=== PATIENT | female | born 1950 | race Caucasian/White ===

== ENCOUNTER 2017-02-09 10:56 | Outpatient (CLI) | payer MEDICARE, MEDICAID | END 2017-02-09 10:57 | disposition home or self-care (01) | LOC: LAB.N 10:56 | PROVIDERS: ATTEND Nurse Practitioner Family | DX: M10.9 Gout, unspecified (principal) | CPT/HCPCS: 36415; 84550 ==

== ENCOUNTER 2017-07-04 08:00 | Outpatient (CLI) | payer MEDICARE, MEDICAID ==
[2017-07-04 19:31] LABS: THYROID STIMULATING HORMONE 3.11 uIU/mL (0.34-5.60)
== END 2017-07-04 08:01 | disposition home or self-care (01) ==
LOC: LAB.N 08:00
PROVIDERS: ATTEND Nurse Practitioner Family
DX: E03.9 Hypothyroidism, unspecified (principal)
CPT/HCPCS: 36415; 84439; 84443

== ENCOUNTER 2017-09-04 14:00 | Outpatient (CLI) | payer MEDICARE, MEDICAID ==
--- NOTE | 2017-09-05 11:33 | DEXA Report ---
DEXA SCAN: 09/04/2017 CLINICAL INDICATION: Postmenopausal. TECHNIQUE: Dual energy x-ray absorptiometry (DXA) was performed on a [employer] system. Regions measured are the AP spine, femoral neck, and, if needed, forearm. COMPARISON: None. In accordance with the International Society for Clinical Densitometry (ISCD) guidelines, data from previous exams may be reanalyzed using current recommendations and techniques. This is done to allow a more accurate basis for comparison with the current study. FINDINGS: The data for the lumbar spine is as follows: REGION BMD (g/cm/cm) T-SCORE Z-SCORE L1 0.916 -1.8 -0.3 L2 1.027 -1.4 0.0 L3 1.019 -1.5 0.0 L4 0.992 -1.7 -0.2 TOTAL 0.991 -1.6 -0.1 NOTE: All evaluable vertebrae are used for classification. The data for the hip is as follows: REGION BMD (g/cm/cm) T-SCORE Z-SCORE Neck 0.715 -2.3 -0.9 TOTAL 0.688 -2.5 -1.4 NOTE: The femoral neck or total proximal femur, whichever is lowest, is used for classification. IMPRESSION: THE WHO CLASSIFICATION BASED ON THE INTERNATIONAL REFERENCE STANDARD IS OSTEOPOROSIS. THE FRACTURE RISK IS HIGH. RECOMMENDATION: Patients with diagnosis of osteoporosis or osteopenia should have regular bone mineral density assessment. For those eligible for Medicare, routine testing is allowed once every 2 years. Testing frequency can be increased for patients who have rapidly progressing disease or for those who are receiving medical therapy to restore bone mass. COMMENT: World Health Organization (WHO) definitions for osteoporosis and osteopenia: NORMAL BMD: T-score at 1.0 or higher, fracture risk is low. OSTEOPENIA BMD: T-score between 1.0 and -2.5, fracture risk is increased. OSTEOPOROSIS BMD: T-score at 2.5 or lower, fracture risk high. National Osteoporosis Foundation recommends: 1. Obtain adequate dietary calcium (at least 1200 mg per day) and vitamin D (400 -800 international units per day). 2. Participate, as appropriate, in regular weightbearing and muscle- strengthening exercise. 3. Avoid tobacco use and reduce alcohol and caffeine intake. 4. For more detailed information see the website at www.NOF.org. MTDD
== END 2017-09-04 14:01 | disposition home or self-care (01) ==
LOC: DI 14:00
PROVIDERS: ATTEND Nurse Practitioner Family
DX: M81.0 Age-related osteoporosis without current pathological fracture (principal); Z78.0 Asymptomatic menopausal state
CPT/HCPCS: 77080

== ENCOUNTER 2017-10-16 08:00 | Outpatient (CLI) | payer MEDICARE, MEDICAID | END 2017-10-16 08:01 | disposition home or self-care (01) | LOC: LAB.S 08:00 | PROVIDERS: ATTEND Nurse Practitioner Family | DX: E03.9 Hypothyroidism, unspecified (principal) | CPT/HCPCS: 36415; 84443 ==

== ENCOUNTER 2018-08-07 08:00 | Outpatient (CLI) | payer MEDICARE, MEDICAID ==
[2018-08-07 13:24] LABS: BASOPHILS # (AUTO) 0.1 10^3/uL (0.0-0.1); BASOPHILS % (AUTO) 1.1 %; EOSINOPHILS # (AUTO) 0.1 10^3/uL (0.0-0.7); EOSINOPHILS % (AUTO) 2.1 %; HGB - HEMOGLOBIN 14.4 g/dL (12.0-16.0); LYMPHOCYTES # (AUTO) 1.6 10^3/uL (1.5-3.5); MEAN CORPUSCULAR HEMOGLOBIN 30.1 pg (27.0-31.0); MEAN CORPUSCULAR HGB CONC 35.1 g/dL (32.0-36.0); MEAN CORPUSCULAR VOLUME 85.7 fL (81.0-99.0); MEAN PLATELET VOLUME 9.3 fL (7.9-10.8); MONOCYTES # (AUTO) 0.6 10^3/uL (0.0-1.0); MONOCYTES % (AUTO) 11.9 %; NEUTROPHILS # (AUTO) 2.6 10^3/uL (1.5-6.6); NEUTROPHILS % (AUTO) 51.9 %; PLT - PLATELET COUNT 264 10^3/uL (130-450); RED CELL DISTRIBUTION WIDTH 13.8 % (12.0-15.0); WHITE BLOOD COUNT 4.9 x10^3/uL (4.8-10.8)
[2018-08-07 13:42] LABS: ALBUMIN 3.9 g/dL (3.2-5.5); ALBUMIN/GLOBULIN RATIO 1.3 (1.0-2.2); ALKALINE PHOSPHATASE 62 IU/L (42-121); ALT ALANINE AMINOTRANSFERASE 18 IU/L (10-60); AST ASPARTATE AMINOTRANSFERASE 18 IU/L (10-42); BILIRUBIN,TOTAL 1.9 mg/dL (0.2-1.0); BUN - BLOOD UREA NITROGEN 19 mg/dL (6-20); CALCIUM 9.7 mg/dL (8.5-10.3); CARBON DIOXIDE - CO2 29 mmol/L (21-32); CHLORIDE 97 mmol/L (101-111); CHOL/HDL RATIO 5.1 (<4.4); CHOLESTEROL 245 mg/dL; CREATININE 0.9 mg/dL (0.4-1.0); GFR - MDRD 63 (>89); GLUCOSE 77 mg/dL (70-100); HDL CHOLESTEROL 48 mg/dL; LDL CHOLESTEROL,CALCULATED 171 mg/dL; LDL/HDL RATIO 3.6 (<4.4); SODIUM 134 mmol/L (135-145); TOTAL PROTEIN 6.8 g/dL (6.7-8.2); URIC ACID 8.9 mg/dL (2.6-7.2); VLDL CHOLESTEROL 26 mg/dL
== END 2018-08-07 23:59 | disposition home or self-care (01) ==
LOC: LAB.N 08:00
PROVIDERS: ATTEND Nurse Practitioner
DX: E78.5 Hyperlipidemia, unspecified (principal); I10 Essential (primary) hypertension
CPT/HCPCS: 36415; 80053; 80061; 83721; 84550; 85025

== ENCOUNTER 2018-08-28 12:59 | Emergency (ER) | payer MEDICARE, MEDICAID ==
[2018-08-28 13:10] VITALS: BP 123/84
--- NOTE | 2018-08-28 13:40 | ED Physician Documentation ---
PD HPI ANIMAL BITE - Stated complaint Stated Complaint: CAT BITE/SWOLLEN HAND - Chief complaint Chief Complaint: Wound - History obtained from History obtained from: Patient, Family - History of Present Illness Location of injury(ies): Left hand Details of the event: Cat, Well appearing, Immunized Timing - onset: Enter time (0800), Today Timing - duration: Hours Timing - details: Abrupt onset, Still present Improved by: Rest Worsened by: Moving, Palpating Associated symptoms: Swelling Similar symptoms before: Has not had sx before Recently seen: Not recently seen - Additional information Additional information: 67-year-old female who is very hard of hearing has developed swelling in the dorsum of her left hand after her cat bit her this morning. She has pain that extends up to the distal forearm. Review of Systems Constitutional: denies: Fever, Chills, Myalgias Eyes: denies: Decreased vision Ears: denies: Ear pain Nose: denies: Congestion Respiratory: denies: Cough GI: denies: Nausea, Vomiting : denies: Dysuria Musculoskeletal: reports: Extremity pain, Extremity swelling Neurologic: denies: Generalized weakness, Focal weakness, Numbness PD PAST MEDICAL HISTORY - Past Medical History Cardiovascular: Hypertension Respiratory: None Endocrine/Autoimmune: HyPOthyroidism Musculoskeletal: Osteopenia, Scoliosis, Other - Present Medications Home Medications: Ambulatory Orders Medication Instructions Recorded Confirmed Amox/Clav 875/125 [Augmentin] 1 each PO Q12H #14 tablet 08/28/18 - Allergies Allergies/Adverse Reactions: Allergies Allergy/AdvReac Type Severity Reaction Status Date / Time Penicillins Allergy Unknown Verified 08/28/18 13:34 PD ED PE NORMAL - Vitals Vital signs reviewed: Yes (hypertensive mild ) - General General: Alert and oriented X 3, No acute distress, Well developed/nourished - HEENT HEENT: Atraumatic, PERRL, EOMI - Respiratory Respiratory: No respiratory distress - Derm Derm: Normal color, Warm and dry, No rash - Extremities Extremities: No deformity, Other (There is a bite wayne to the dorsum of the left hand over the center and the area below this is swollen involving a majority of the dorsum of the left hand. There is not visible lymphangitic streaking but there is pain to the dorsum of the left forearm distally. ) - Neuro Neuro: No motor deficit, No sensory deficit Eye Opening: Spontaneous Motor: Obeys Commands Verbal: Oriented GCS Score: 15 - Psych Psych: Normal mood, Normal affect Results - Vitals Vitals: Vital Signs - 24 hr 08/28/18 13:08 Temperature 36.6 C Heart Rate 99 Respiratory 16 Rate Blood Pressure 123/84 H O2 Saturation 100 Oxygen O2 Source Room air PD MEDICAL DECISION MAKING - ED course Complexity details: considered differential, d/w patient, d/w family ED course: 67-year-old female who is hard of hearing is allergic to penicillin but she believes she could take amoxicillin. She has had a cat bite to the dorsum of her hand this looks to be infected and she is placed on Augmentin. Departure - Departure Disposition: 01 Home, Self Care Clinical Impression: Cat bite of hand Qualifiers: Encounter type: initial encounter Laterality: left Qualified Code(s): S61.452A - Open bite of left hand, initial encounter; W55.01XA - Bitten by cat, initial encounter Instructions: ED Bite Cat Follow-Up: Reyna Garcia DNP [Primary Care Provider] - Prescriptions: Amox/Clav 875/125 [Augmentin] 1 each PO Q12H #14 tablet
== END 2018-08-28 13:51 | disposition home or self-care (01) ==
LOC: ED 12:59
DX: S61.452A Open bite of left hand, initial encounter (principal); W55.01XA Bitten by cat, initial encounter; L08.9 Local infection of the skin and subcutaneous tissue, unspecified; Z88.0 Allergy status to penicillin; I10 Essential (primary) hypertension; H91.90 Unspecified hearing loss, unspecified ear
CPT/HCPCS: 99283

== ENCOUNTER 2018-10-08 08:06 | Outpatient (CLI) | payer MEDICARE, MEDICAID | END 2018-10-08 08:07 | disposition EMS.NT | LOC: EMS 08:06 | PROVIDERS: ATTEND Surgery | DX: R00.0 Tachycardia, unspecified (principal); I10 Essential (primary) hypertension; F41.9 Anxiety disorder, unspecified ==

== ENCOUNTER 2018-10-08 08:50 | Emergency (ER) | payer MEDICARE, MEDICAID ==
--- NOTE | 2018-10-08 09:23 | ED Physician Documentation ---
History of Present Illness - Stated complaint Stated Complaint: ELEVATED HR - Chief complaint Chief Complaint: Cardiac - History obtained from History obtained from: Patient, Family - History of Present Illness Timing: Other (one month) - Additonal information Additional information: 67-year-old female who over the past month is felt that her heart rate is been faster than usual. She has been using a blood pressure cuff and she is clocked her heart rate as high as 107. She does not have any other specific symptoms. She denies any shortness of breath fever cough or congestion. She does state that she discontinued triamterene about 7 months ago and felt that her blood pressure has not been under as good of control since then. Review of Systems Constitutional: denies: Fever Eyes: denies: Decreased vision Ears: denies: Ear pain Nose: denies: Rhinorrhea / runny nose, Congestion Throat: denies: Sore throat Cardiac: denies: Chest pain / pressure, Palpitations Respiratory: denies: Dyspnea, Cough GI: denies: Abdominal Pain, Nausea, Vomiting : denies: Dysuria, Frequency Skin: denies: Rash Musculoskeletal: denies: Neck pain, Back pain, Extremity pain Neurologic: denies: Generalized weakness, Focal weakness, Numbness PD PAST MEDICAL HISTORY - Past Medical History Cardiovascular: Hypertension Respiratory: None Endocrine/Autoimmune: HyPOthyroidism Musculoskeletal: Osteopenia, Scoliosis, Other - Present Medications Home Medications: Ambulatory Orders Medication Instructions Recorded Confirmed Amox/Clav 875/125 [Augmentin] 1 each PO Q12H #14 tablet 08/28/18 - Allergies Allergies/Adverse Reactions: Allergies Allergy/AdvReac Type Severity Reaction Status Date / Time Penicillins Allergy Unknown Verified 08/28/18 13:34 procaine [From Novocain] Allergy Hives Verified 10/08/18 09:09 - Social History Does the pt smoke?: No Smoking Status: Never smoker Does the pt drink ETOH?: No Does the pt have substance abuse?: No PD ED PE NORMAL - Vitals Vital signs reviewed: Yes (tachypneic and hypertensive) - General General: Alert and oriented X 3, No acute distress, Well developed/nourished, Other (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) - HEENT HEENT: Atraumatic, PERRL, EOMI, Ears normal, Moist mucous membranes, Pharynx benign, Dentition benign - Neck Neck: Supple, no meningeal sign, No bony TTP - Cardiac Cardiac: RRR, No murmur - Respiratory Respiratory: No respiratory distress, Clear bilaterally - Abdomen Abdomen: Soft, Non tender - Back Back: No CVA TTP, No spinal TTP - Derm Derm: Normal color, Warm and dry, No rash - Extremities Extremities: No deformity, No edema - Neuro Neuro: Alert and oriented X 3, 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 ) Computer interpretation: Agree with computer - Labs Labs: Laboratory Tests 10/08/18 10/08/18 10/08/18 09:54 09:54 09:54 WBC 6.3 RBC 4.55 Hgb 13.4 Hct 39.3 MCV 86.5 MCH 29.5 MCHC 34.1 RDW 14.3 Plt Count 235 MPV 9.1 Neut # (Auto) 4.8 Lymph # (Auto) 1.0 L Trigg # (Auto) 0.5 Eos # (Auto) 0.0 Baso # (Auto) 0.1 Absolute Nucleated RBC 0.00 Nucleated RBC % 0.0 Sodium 133 L Potassium 3.6 Chloride 102 Carbon Dioxide 23 Anion Gap 8.0 BUN 17 Creatinine 0.8 Estimated GFR (MDRD) 72 L Glucose 103 H Calcium 9.2 Total Bilirubin 1.7 H AST 21 ALT 21 Alkaline Phosphatase 63 Troponin I < 0.04 Total Protein 6.5 L Albumin 3.6 Globulin 2.9 Albumin/Globulin Ratio 1.2 Lipase 35 TSH Thyroxine (T4) 10/08/18 09:54 WBC RBC Hgb Hct MCV MCH MCHC RDW Plt Count MPV Neut # (Auto) Lymph # (Auto) Trigg # (Auto) Eos # (Auto) Baso # (Auto) Absolute Nucleated RBC Nucleated RBC % Sodium Potassium Chloride Carbon Dioxide Anion Gap BUN Creatinine Estimated GFR (MDRD) Glucose Calcium Total Bilirubin AST ALT Alkaline Phosphatase Troponin I Total Protein Albumin Globulin Albumin/Globulin Ratio Lipase TSH 1.77 Thyroxine (T4) 11.03 Procedures - IVC sono (time) 0920 Bedside IVC sono: IVC measures (cm) (1.57), IVC collapsed c insp (cm) (1.08), Euvolemia PD MEDICAL DECISION MAKING - ED course Complexity details: reviewed results, re-evaluated patient, considered differential, d/w patient, d/w family ED course: 67-year-old female with history of hypertension and neurofibromatosis has developed a sensation that her heart is faster than it should be and she is found to be euvolemic on interrogation the inferior vena cava she has otherwise an unremarkable review of systems and some blood work and urinalysis are undertaken. The patient has unremarkable diagnostics and a concern for anxiety is entertained. I have asked the patient to follow-up with her primary care physician. Departure - Departure Disposition: 01 Home, Self Care Clinical Impression: Anxiety Condition: Stable Instructions: ED Stress React, ED Panic Attack Follow-Up: Reyna Garcia DNP [Primary Care Provider] -
[2018-10-08 09:58] LABS: BASOPHILS # (AUTO) 0.1 10^3/uL (0.0-0.1); EOSINOPHILS % (AUTO) 0.3 %; HGB - HEMOGLOBIN 13.4 g/dL (12.0-16.0); LYMPHOCYTES % (AUTO) 15.4 %; MEAN CORPUSCULAR HEMOGLOBIN 29.5 pg (27.0-31.0); MEAN CORPUSCULAR HGB CONC 34.1 g/dL (32.0-36.0); MEAN CORPUSCULAR VOLUME 86.5 fL (81.0-99.0); MEAN PLATELET VOLUME 9.1 fL (7.9-10.8); MONOCYTES # (AUTO) 0.5 10^3/uL (0.0-1.0); MONOCYTES % (AUTO) 7.9 %; NEUTROPHILS # (AUTO) 4.8 10^3/uL (1.5-6.6); NEUTROPHILS % (AUTO) 75.4 %; PLT - PLATELET COUNT 235 10^3/uL (130-450); RED BLOOD COUNT 4.55 10^6/uL (4.20-5.40); RED CELL DISTRIBUTION WIDTH 14.3 % (12.0-15.0); WHITE BLOOD COUNT 6.3 x10^3/uL (4.8-10.8)
[2018-10-08 10:12] LABS: ALBUMIN 3.6 g/dL (3.2-5.5); ALBUMIN/GLOBULIN RATIO 1.2 (1.0-2.2); BILIRUBIN,TOTAL 1.7 mg/dL (0.2-1.0); CALCIUM 9.2 mg/dL (8.5-10.3); CREATININE 0.8 mg/dL (0.4-1.0); TOTAL PROTEIN 6.5 g/dL (6.7-8.2)
[2018-10-08 10:23] LABS: T4 (THYROXINE) 11.03 ug/dL (6.09-12.23)
[2018-10-08 10:27] LABS: THYROID STIMULATING HORMONE 1.77 uIU/mL (0.34-5.60)
[2018-10-08 12:40] VITALS: BP 161/90
== END 2018-10-08 12:39 | disposition home or self-care (01) ==
LOC: ED 08:50
DX: F41.9 Anxiety disorder, unspecified (principal); I10 Essential (primary) hypertension; Q85.00 Neurofibromatosis, unspecified
CPT/HCPCS: 36415; 80053; 83690; 84436; 84443; 84484; 85025; 93005; 99283

== ENCOUNTER 2018-11-12 09:53 | Outpatient (CLI) | payer MEDICARE, MEDICAID ==
[2018-11-12 13:23] LABS: ALBUMIN 3.9 g/dL (3.2-5.5); ALBUMIN/GLOBULIN RATIO 1.2 (1.0-2.2); ALKALINE PHOSPHATASE 65 IU/L (42-121); ALT ALANINE AMINOTRANSFERASE 21 IU/L (10-60); AST ASPARTATE AMINOTRANSFERASE 21 IU/L (10-42); BILIRUBIN,TOTAL 1.7 mg/dL (0.2-1.0); BUN - BLOOD UREA NITROGEN 17 mg/dL (6-20); CALCIUM 9.9 mg/dL (8.5-10.3); CARBON DIOXIDE - CO2 27 mmol/L (21-32); CHLORIDE 104 mmol/L (101-111); CHOL/HDL RATIO 3.1 (<4.4); CHOLESTEROL 162 mg/dL; CREATININE 0.9 mg/dL (0.4-1.0); GFR - MDRD 63 (>89); GLUCOSE 91 mg/dL (70-100); HDL CHOLESTEROL 52 mg/dL; LDL CHOLESTEROL,CALCULATED 94 mg/dL; LDL/HDL RATIO 1.8 (<4.4); SODIUM 140 mmol/L (135-145); TOTAL PROTEIN 7.2 g/dL (6.7-8.2); URIC ACID 4.3 mg/dL (2.6-7.2); VLDL CHOLESTEROL 16 mg/dL
== END 2018-11-12 23:59 | disposition home or self-care (01) ==
LOC: LAB.N 09:53
PROVIDERS: ATTEND Nurse Practitioner Gerontology
DX: E78.5 Hyperlipidemia, unspecified (principal)
CPT/HCPCS: 36415; 80053; 80061; 83721; 84550

== ENCOUNTER 2018-11-23 10:44 | Outpatient (CLI) | payer MEDICARE, MEDICAID ==
--- NOTE | 2018-11-23 12:37 | Mammography Report ---
Reason: SCREENING MAMMO Procedure Date: 11/23/2018 Accession Number: [id number] / [id number] Procedure: MGN - Screening Mammo Dig Bilat CPT Code: FULL RESULT: EXAM: Screening Mammo Dig Bilat DATE: 11/23/2018 11:27 AM CLINICAL HISTORY: Routine screening. No reported personal or family history of breast cancer. History of prior benign left breast biopsy. History neurofibromatosis. TECHNIQUE: (B) - Bilateral CC and MLO views were obtained. COMPARISON: 05/21/2015 through 11/11/2011 PARENCHYMAL PATTERN: (D) - The breasts demonstrate heterogeneously dense fibroglandular parenchyma bilaterally. FINDINGS: Bilateral breasts: There are multiple stable circumscribed skin lesions of varying size consistent with history of neurofibromatosis. There are no suspicious masses, calcifications, or areas of distortion within the breast tissue. IMPRESSION: Benign findings. BI-RADS category 2. RECOMMENDATION: (ANNUAL) - Recommend routine annual screening mammography. BI-RADS CATEGORY: (2) - Benign Findings. STANDARD QUALIFYING STATEMENTS: 1. This examination was not reviewed with the aid of Computer-Aided Detection (CAD). 2. A negative or benign imaging report should not preclude biopsy if clinically suspicious findings are present. 3. Dense breasts may obscure an underlying neoplasm. 4. This examination was reviewed without the aid of 3D breast imaging (tomosynthesis).
== END 2018-11-23 10:45 | disposition home or self-care (01) ==
LOC: DI.N 10:44
DX: Z12.31 Encounter for screening mammogram for malignant neoplasm of breast (principal)
CPT/HCPCS: 77067

== ENCOUNTER 2019-01-17 16:16 | Emergency (ER) | payer MEDICARE, MEDICAID ==
--- NOTE | 2019-01-17 18:58 | ED Physician Documentation ---
History of Present Illness - Stated complaint Stated Complaint: BLOOD PRESSURE - Chief complaint Chief Complaint: General - History obtained from History obtained from: Patient, Family - History of Present Illness Timing: Today Pain level max: 0 Pain level now: 0 - Additonal information Additional information: Patient with asymptomatic hypertension today. States her blood pressure was 88/79 this morning. States that it was in the 160s systolic this afternoon. Called her doctor who referred her here. She has no symptoms. No headache. No chest pain. No shortness of breath. No wheezing. No abdominal pain. No vision changes. Currently feeling normal. No focal neurological deficits. Review of Systems Ten Systems: 10 systems reviewed and negative Constitutional: denies: Fever, Chills Eyes: denies: Photophobia Ears: denies: Ear pain Nose: denies: Rhinorrhea / runny nose, Congestion Throat: denies: Sore throat Cardiac: denies: Chest pain / pressure, Palpitations Respiratory: denies: Cough GI: denies: Vomiting, Diarrhea Skin: denies: Rash Musculoskeletal: denies: Neck pain, Back pain Neurologic: denies: Focal weakness, Numbness, Headache PD PAST MEDICAL HISTORY - Past Medical History Cardiovascular: Hypertension Respiratory: None Neuro: None Endocrine/Autoimmune: HyPOthyroidism GI: None 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 : None HEENT: None Psych: Other Musculoskeletal: Osteopenia, Scoliosis, Other Other Past Medical History: NF1 - Past Surgical History Past Surgical History: Yes - Present Medications Home Medications: Ambulatory Orders Medication Instructions Recorded Confirmed Amox/Clav 875/125 [Augmentin] 1 each PO Q12H #14 tablet 08/28/18 - Allergies Allergies/Adverse Reactions: Allergies Allergy/AdvReac Type Severity Reaction Status Date / Time Penicillins Allergy Unknown Verified 01/17/19 16:28 procaine [From Novocain] Allergy Hives Verified 01/17/19 16:28 - Social History Does the pt smoke?: No Smoking Status: Never smoker Does the pt drink ETOH?: No Does the pt have substance abuse?: Yes Substance Use and Type: Marijuana - Immunizations Immunizations are current?: Yes - POLST Patient has POLST: No PD ED PE NORMAL - Vitals Vital signs reviewed: Yes - General General: Alert and oriented X 3, No acute distress, Well developed/nourished - HEENT HEENT: PERRL, Moist mucous membranes - Neck Neck: Supple, no meningeal sign - Cardiac Cardiac: RRR, Strong equal pulses - Respiratory Respiratory: No respiratory distress, Clear bilaterally - Abdomen Abdomen: Soft, Non tender, Non distended - Derm Derm: Warm and dry - Extremities Extremities: No edema - Neuro Neuro: Alert and oriented X 3 - Psych Psych: Normal mood, Normal affect Results - Vitals Vitals: Vital Signs - 24 hr 01/17/19 01/17/19 16:24 19:10 Temperature 36.8 C 36.0 C L Heart Rate 87 75 Respiratory 16 16 Rate Blood Pressure 142/84 H 110/76 O2 Saturation 100 100 Oxygen O2 Source Room air PD MEDICAL DECISION MAKING - ED course Complexity details: considered differential, d/w patient ED course: 68-year-old female with asymptomatic hypertension. We will have her keep a log of her blood pressures at home, continue her current medications and follow-up with her doctor for adjustment. Patient counseled regarding signs and symptoms for which I believe and urgent re-evaluation would be necessary. Patient with good understanding of and agreement to plan and is comfortable going home at this time This document was made in part using voice recognition software. While efforts are made to proofread this document, sound alike and grammatical errors may occur. Departure - Departure Disposition: 01 Home, Self Care Clinical Impression: Hypertension Qualifiers: Hypertension type: unspecified Qualified Code(s): I10 - Essential (primary) hypertension Condition: Good Instructions: ED HTN Established Follow-Up: Dl Marin PA-C [Primary Care Provider] - Within 1 week Comments: Continue your medications at home. Keep a log of your blood pressures. Follow- up with your doctor for further care. Discharge Date/Time: 01/17/19 19:10
[2019-01-17 19:13] VITALS: BP 110/76
== END 2019-01-17 19:10 | disposition home or self-care (01) ==
LOC: ED 16:16
DX: I10 Essential (primary) hypertension (principal)
CPT/HCPCS: 99281; 99284

== ENCOUNTER 2019-03-05 17:54 | Outpatient (CLI) | payer MEDICARE | END 2019-03-05 17:55 | disposition EMS.NT | LOC: EMS 17:54 | PROVIDERS: ATTEND Surgery | DX: H93.19 Tinnitus, unspecified ear (principal) ==

== ENCOUNTER 2019-05-30 11:09 | Outpatient (CLI) | payer MEDICARE, MEDICAID ==
[2019-05-30 18:58] LABS: CALCIUM 9.5 mg/dL (8.5-10.3); URIC ACID 6.3 mg/dL (2.6-7.2)
== END 2019-05-30 23:59 | disposition home or self-care (01) ==
LOC: LAB.N 11:09
PROVIDERS: ATTEND Physician Assistant Medical
DX: M10.9 Gout, unspecified (principal)
CPT/HCPCS: 36415; 80048; 84550

== ENCOUNTER 2019-12-27 11:19 | Outpatient (CLI) | payer MEDICARE, MEDICAID ==
[2019-12-27 18:05] LABS: BASOPHILS % (AUTO) 0.7 %; EOSINOPHILS # (AUTO) 0.1 10^3/uL (0.0-0.7); EOSINOPHILS % (AUTO) 1.2 %; HGB - HEMOGLOBIN 13.6 g/dL (12.0-16.0); LYMPHOCYTES # (AUTO) 1.3 10^3/uL (1.5-3.5); LYMPHOCYTES % (AUTO) 23.2 %; MEAN CORPUSCULAR HEMOGLOBIN 29.2 pg (27.0-31.0); MEAN CORPUSCULAR HGB CONC 31.8 g/dL (32.0-36.0); MEAN CORPUSCULAR VOLUME 91.8 fL (81.0-99.0); MEAN PLATELET VOLUME 11.4 fL (7.9-10.8); MONOCYTES # (AUTO) 0.5 10^3/uL (0.0-1.0); MONOCYTES % (AUTO) 9.2 %; NEUTROPHILS # (AUTO) 3.8 10^3/uL (1.5-6.6); NEUTROPHILS % (AUTO) 65.4 %; PLT - PLATELET COUNT 282 10^3/uL (130-450); RED BLOOD COUNT 4.66 10^6/uL (4.20-5.40); RED CELL DISTRIBUTION WIDTH 14.1 % (12.0-15.0); WHITE BLOOD COUNT 5.8 x10^3/uL (4.8-10.8)
[2019-12-27 18:32] LABS: ALBUMIN 4.1 g/dL (3.2-5.5); ALBUMIN/GLOBULIN RATIO 1.6 (1.0-2.2); ALKALINE PHOSPHATASE 58 IU/L (42-121); ALT ALANINE AMINOTRANSFERASE 26 IU/L (10-60); AST ASPARTATE AMINOTRANSFERASE 23 IU/L (10-42); BILIRUBIN,TOTAL 1.8 mg/dL (0.2-1.0); BUN - BLOOD UREA NITROGEN 24 mg/dL (6-20); CALCIUM 9.7 mg/dL (8.5-10.3); CARBON DIOXIDE - CO2 25 mmol/L (21-32); CHLORIDE 104 mmol/L (101-111); CHOL/HDL RATIO 4.2 (<4.4); CHOLESTEROL 234 mg/dL; GLUCOSE 92 mg/dL (70-100); HDL CHOLESTEROL 56 mg/dL; LDL CHOLESTEROL,CALCULATED 154 mg/dL; LDL/HDL RATIO 2.8 (<4.4); SODIUM 139 mmol/L (135-145); TOTAL PROTEIN 6.7 g/dL (6.7-8.2); VLDL CHOLESTEROL 24 mg/dL
== END 2019-12-27 23:59 | disposition home or self-care (01) ==
LOC: LAB.WCP 11:19
PROVIDERS: ATTEND Family Medicine
DX: I10 Essential (primary) hypertension (principal); E03.9 Hypothyroidism, unspecified; E78.5 Hyperlipidemia, unspecified
CPT/HCPCS: 36415; 80053; 80061; 83721; 84443; 85025

== ENCOUNTER 2020-03-31 13:20 | Outpatient (CLI) | payer MEDICARE, MEDICAID ==
[2020-03-31 18:08] LABS: BILIRUBIN,URINE NEGATIVE (NEGATIVE); GLUCOSE, URINE (UA) NEGATIVE (NEGATIVE); KETONES,URINE (UA) NEGATIVE (NEGATIVE); LEUKOCYTE ESTERASE, URINE SMALL (NEGATIVE); NITRITE,URINE NEGATIVE (NEGATIVE); OCCULT BLOOD,URINE NEGATIVE (NEGATIVE); PH,URINE 5.5 PH (5.0-7.5); PROTEIN,URINE NEGATIVE (NEGATIVE); UROBILINOGEN,URINE 0.2 (NORMAL) E.U./dL (NORMAL)
[2020-03-31 18:17] LABS: CLARITY,URINE HAZY (CLEAR)
[2020-03-31 18:22] LABS: BASOPHILS # (AUTO) 0.1 10^3/uL (0.0-0.1); BASOPHILS % (AUTO) 0.8 %; EOSINOPHILS # (AUTO) 0.1 10^3/uL (0.0-0.7); HGB - HEMOGLOBIN 13.7 g/dL (12.0-16.0); LYMPHOCYTES # (AUTO) 1.7 10^3/uL (1.5-3.5); LYMPHOCYTES % (AUTO) 21.5 %; MEAN CORPUSCULAR HEMOGLOBIN 30.6 pg (27.0-31.0); MEAN CORPUSCULAR HGB CONC 33.3 g/dL (32.0-36.0); MEAN CORPUSCULAR VOLUME 92.2 fL (81.0-99.0); MEAN PLATELET VOLUME 11.6 fL (7.9-10.8); MONOCYTES # (AUTO) 0.7 10^3/uL (0.0-1.0); MONOCYTES % (AUTO) 8.1 %; NEUTROPHILS # (AUTO) 5.4 10^3/uL (1.5-6.6); PLT - PLATELET COUNT 298 10^3/uL (130-450); RED BLOOD COUNT 4.47 10^6/uL (4.20-5.40); RED CELL DISTRIBUTION WIDTH 13.5 % (12.0-15.0)
[2020-03-31 18:27] LABS: BACTERIA,URINE None Seen /HPF (None Seen); RBC,URINE None Seen /HPF (0-5); SQUAMOUS EPITHELIAL CELL,UR FEW Squamous (<= Few)
[2020-03-31 19:00] LABS: CALCIUM 9.7 mg/dL (8.5-10.3); CREATININE 1.2 mg/dL (0.4-1.0); PHOSPHORUS 4.4 mg/dL (2.5-4.6)
[2020-03-31 19:08] LABS: CREATININE,URINE 92.9 mg/dL; MICROALBUM/CREATININE RATIO,UR 8.6 ug/mg (<30.0); MICROALBUMIN,URINE 0.8 mg/dL (0-300.0)
== END 2020-03-31 23:59 | disposition home or self-care (01) ==
LOC: LAB.WCP 13:20
PROVIDERS: ATTEND Internal Medicine Nephrology
DX: N18.3 Chronic kidney disease, stage 3 (moderate) (principal)
CPT/HCPCS: 36415; 80069; 81001; 82043; 82306; 82570; 83970; 85025; 87086

== ENCOUNTER 2020-08-31 11:03 | Outpatient (CLI) | payer MEDICARE, MEDICAID | END 2020-08-31 11:04 | disposition critical access hospital (66) | LOC: EMS 11:03 | PROVIDERS: ATTEND Emergency Medicine | DX: F41.0 Panic disorder [episodic paroxysmal anxiety] (principal); R03.0 Elevated blood-pressure reading, without diagnosis of hypertension | CPT/HCPCS: A0425; A0429 ==

== ENCOUNTER 2020-08-31 11:22 | Emergency (ER) | payer MEDICARE, MEDICAID ==
[2020-08-31] MEDS ORDERED: LORazepam 0.5 MG TABLET PO STA (12:21)
--- NOTE | 2020-08-31 12:21 | ED Physician Documentation ---
PD HPI CHEST PAIN - Stated complaint Stated Complaint: HIGH BP - Chief complaint Chief Complaint: Cardiac - History obtained from History obtained from: Patient - History of Present Illness Timing - onset: Today Timing - onset during: Rest, Light activity (she had gotten up and was feeling somewhat anxious. Minimal headache. Took her BP and it was elevated. Had not taken her morning meds yet. Came for evaluation. feeling improving enroute.) Timing - details: Gradual onset, Now resolved Quality: Tightness (feeling in frontal head. No chest pain nor dyspnea. No recent edema.). No: Pressure Associated symptoms: General Weakness. No: Shortness of air, Diaphoresis, Nausea, Feeling faint / dizzy Similar symptoms before: No diagnosis (notes this feeling at times and believes it is elevated bp when it happens. 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 : None HEENT: None Psych: Other Musculoskeletal: Osteopenia, Scoliosis, Other - Past Surgical History Past Surgical History: Yes - Present Medications Home Medications: Ambulatory Orders Medication Instructions Recorded Confirmed Amox/Clav 875/125 [Augmentin] 1 each PO Q12H #14 tablet 08/28/18 - Allergies Allergies/Adverse Reactions: Allergies Allergy/AdvReac Type Severity Reaction Status Date / Time clindamycin Allergy GI UPSET Verified 08/31/20 11:42 hydroxyzine Allergy buring in Verified 08/31/20 11:42 throat Penicillins Allergy Unknown Verified 08/31/20 11:42 procaine [From Novocain] Allergy Hives Verified 08/31/20 11:42 - Social History Does the pt smoke?: No Smoking Status: Never smoker Does the pt drink ETOH?: No Does the pt have substance abuse?: Yes - Immunizations Immunizations are current?: Yes - POLST Patient has POLST: No PD ED PE NORMAL - Vitals Vital signs reviewed: Yes - General General: Alert and oriented X 3, No acute distress, Well developed/nourished - HEENT HEENT: Other (very hard of hearing, right better than left. ) - Neck Neck: Supple, no meningeal sign, No adenopathy - Cardiac Cardiac: RRR, No murmur - Respiratory Respiratory: Clear bilaterally - Abdomen Abdomen: Soft, Non tender - Derm Derm: Normal color, Warm and dry - Extremities Extremities: No edema, No calf tenderness / cord - Neuro Neuro: Alert and oriented X 3, No motor deficit, Normal speech Results - Vitals Vitals: Vital Signs - 24 hr 08/31/20 08/31/20 08/31/20 11:22 12:46 13:46 Temperature 36.8 C 36.9 C 36.9 C Heart Rate 89 77 74 Respiratory 16 18 16 Rate Blood Pressure 155/90 H 148/81 H 130/77 O2 Saturation 100 99 98 Oxygen O2 Source Room air - EKG (time done) 11:27 Rate: Rate (enter#) (82) Rhythm: NSR Isom: Normal Intervals: Normal WI QRS: Normal Ischemia: Normal ST segments. No: ST elevation c/w ischemia, ST depression - Labs Labs: Laboratory Tests 08/31/20 08/31/20 08/31/20 12:40 12:40 12:40 WBC 6.7 RBC 4.27 Hgb 13.0 Hct 37.9 MCV 88.8 MCH 30.4 MCHC 34.3 RDW 13.2 Plt Count 277 MPV 10.3 Neut # (Auto) 5.2 Lymph # (Auto) 1.0 L [place] # (Auto) 0.4 Eos # (Auto) 0.1 Baso # (Auto) 0.0 Absolute Nucleated RBC 0.00 Nucleated RBC % 0.0 Sodium 134 L Potassium 4.3 Chloride 100 L Carbon Dioxide 23 Anion Gap 11.0 BUN 19 Creatinine 1.1 H Estimated GFR (MDRD) 49 L Glucose 109 H Calcium 10.2 Magnesium 1.7 Total Bilirubin 1.2 H AST 22 ALT 23 Alkaline Phosphatase 58 Total Protein 6.7 Albumin 4.0 Globulin 2.7 Albumin/Globulin Ratio 1.5 TSH 4.13 PD MEDICAL DECISION MAKING - ED course Complexity details: considered differential (high bp and some headache. Can check renal function and electrolytes. Normal neuro. Normal ECG. BP improved on its own, presume from meds she took at home. ), d/w patient Departure - Departure Disposition: 01 Home, Self Care Clinical Impression: Transient hypertension, Anxiety Condition: Stable Record reviewed to determine appropriate education?: Yes Follow-Up: [facility] [Provider Group] Comments: Continue usual medications. Stay well-hydrated. Low-salt diet. Follow-up with your primary care this coming couple of weeks as planned. If you are feeling anxious at times, you could try a Benadryl tablet and see if that will help. That be preferable over a prescription medicine. Otherwise discuss it with your primary care. Discharge Date/Time: 08/31/20 13:52
[2020-08-31 12:51] LABS: BASOPHILS % (AUTO) 0.6 %; EOSINOPHILS # (AUTO) 0.1 10^3/uL (0.0-0.7); EOSINOPHILS % (AUTO) 0.8 %; LYMPHOCYTES % (AUTO) 14.4 %; MEAN CORPUSCULAR HEMOGLOBIN 30.4 pg (27.0-31.0); MEAN CORPUSCULAR HGB CONC 34.3 g/dL (32.0-36.0); MEAN CORPUSCULAR VOLUME 88.8 fL (81.0-99.0); MEAN PLATELET VOLUME 10.3 fL (7.9-10.8); MONOCYTES # (AUTO) 0.4 10^3/uL (0.0-1.0); MONOCYTES % (AUTO) 6.5 %; NEUTROPHILS # (AUTO) 5.2 10^3/uL (1.5-6.6); NEUTROPHILS % (AUTO) 77.4 %; PLT - PLATELET COUNT 277 10^3/uL (130-450); RED BLOOD COUNT 4.27 10^6/uL (4.20-5.40); RED CELL DISTRIBUTION WIDTH 13.2 % (12.0-15.0); WHITE BLOOD COUNT 6.7 x10^3/uL (4.8-10.8)
[2020-08-31 13:04] LABS: ALBUMIN/GLOBULIN RATIO 1.5 (1.0-2.2); BILIRUBIN,TOTAL 1.2 mg/dL (0.2-1.0); CALCIUM 10.2 mg/dL (8.5-10.3); CREATININE 1.1 mg/dL (0.4-1.0); MAGNESIUM 1.7 mg/dL (1.7-2.8); TOTAL PROTEIN 6.7 g/dL (6.7-8.2)
[2020-08-31 13:46] VITALS: BP 130/77
== END 2020-08-31 13:52 | disposition home or self-care (01) ==
LOC: EDUNIT# → ED 11:22
DX: I10 Essential (primary) hypertension (principal); R51.9 Headache, unspecified; F41.9 Anxiety disorder, unspecified
CPT/HCPCS: 36415; 80053; 83735; 84443; 85025; 93005; 99283; 99284; A9270

== ENCOUNTER 2020-10-15 09:56 | Outpatient (CLI) | payer MEDICARE, MEDICAID ==
[2020-10-15 11:54] LABS: BASOPHILS # (AUTO) 0.1 10^3/uL (0.0-0.1); BASOPHILS % (AUTO) 1.2 %; EOSINOPHILS # (AUTO) 0.2 10^3/uL (0.0-0.7); EOSINOPHILS % (AUTO) 3.6 %; HCT - HEMATOCRIT 41.5 % (37.0-47.0); HGB - HEMOGLOBIN 13.8 g/dL (12.0-16.0); LYMPHOCYTES # (AUTO) 1.6 10^3/uL (1.5-3.5); LYMPHOCYTES % (AUTO) 28.3 %; MEAN CORPUSCULAR HEMOGLOBIN 30.1 pg (27.0-31.0); MEAN CORPUSCULAR HGB CONC 33.3 g/dL (32.0-36.0); MEAN CORPUSCULAR VOLUME 90.4 fL (81.0-99.0); MEAN PLATELET VOLUME 11.2 fL (7.9-10.8); MONOCYTES # (AUTO) 0.6 10^3/uL (0.0-1.0); MONOCYTES % (AUTO) 10.1 %; NEUTROPHILS # (AUTO) 3.3 10^3/uL (1.5-6.6); NEUTROPHILS % (AUTO) 56.6 %; PLT - PLATELET COUNT 265 10^3/uL (130-450); RED BLOOD COUNT 4.59 10^6/uL (4.20-5.40); RED CELL DISTRIBUTION WIDTH 13.5 % (12.0-15.0); WHITE BLOOD COUNT 5.8 x10^3/uL (4.8-10.8)
[2020-10-15 12:59] LABS: ALBUMIN 3.9 g/dL (3.2-5.5); ALBUMIN/GLOBULIN RATIO 1.4 (1.0-2.2); ALKALINE PHOSPHATASE 54 IU/L (42-121); ALT ALANINE AMINOTRANSFERASE 25 IU/L (10-60); AST ASPARTATE AMINOTRANSFERASE 23 IU/L (10-42); BILIRUBIN,TOTAL 1.5 mg/dL (0.2-1.0); BUN - BLOOD UREA NITROGEN 22 mg/dL (6-20); CALCIUM 9.9 mg/dL (8.5-10.3); CARBON DIOXIDE - CO2 25 mmol/L (21-32); CHLORIDE 105 mmol/L (101-111); CHOL/HDL RATIO 4.3 (<4.4); CHOLESTEROL 221 mg/dL; GFR - MDRD 55 (>89); GLUCOSE 91 mg/dL (70-100); HDL CHOLESTEROL 52 mg/dL; LDL CHOLESTEROL,CALCULATED 146 mg/dL; LDL/HDL RATIO 2.8 (<4.4); POTASSIUM 4.2 mmol/L (3.5-5.0); SODIUM 140 mmol/L (135-145); THYROID STIMULATING HORMONE 3.01 uIU/mL (0.34-5.60); TOTAL PROTEIN 6.6 g/dL (6.7-8.2); TRIGLYCERIDES 114 mg/dL; VLDL CHOLESTEROL 23 mg/dL
== END 2020-10-15 23:59 | disposition home or self-care (01) ==
LOC: LAB.WCP 09:56
PROVIDERS: ATTEND Family Medicine
DX: I12.9 Hypertensive chronic kidney disease with stage 1 through stage 4 chronic kidney disease, or unspecified chronic kidney disease (principal); N18.30 Chronic kidney disease, stage 3 unspecified; H81.09 Meniere's disease, unspecified ear; E78.5 Hyperlipidemia, unspecified; E03.9 Hypothyroidism, unspecified
CPT/HCPCS: 36415; 80053; 80061; 83721; 84443; 85025

== ENCOUNTER 2021-03-06 13:07 | Outpatient (CLI) | payer MEDICARE, MEDICAID | END 2021-03-06 23:59 | disposition EMS.NT | LOC: EMS 13:07 | DX: I10 Essential (primary) hypertension (principal); F41.9 Anxiety disorder, unspecified ==

== ENCOUNTER 2021-03-08 15:58 | Outpatient (CLI) | payer MEDICARE, MEDICAID | END 2021-03-08 15:59 | disposition EMS.NT | LOC: EMS 15:58 | DX: I10 Essential (primary) hypertension (principal); F41.9 Anxiety disorder, unspecified ==

== ENCOUNTER 2021-06-23 14:49 | Outpatient (CLI) | payer MEDICARE, MEDICAID | END 2021-06-23 23:59 | disposition home or self-care (01) | LOC: LAB.N 14:49 | PROVIDERS: ATTEND Family Medicine | DX: N39.0 Urinary tract infection, site not specified (principal) | CPT/HCPCS: 87086; 87181 ==

== ENCOUNTER 2021-07-13 08:00 | Outpatient (CLI) | payer MEDICARE, MEDICAID ==
[2021-07-13 11:37] LABS: BASOPHILS # (AUTO) 0.1 10^3/uL (0.0-0.1); EOSINOPHILS # (AUTO) 0.2 10^3/uL (0.0-0.7); EOSINOPHILS % (AUTO) 3.3 %; HCT - HEMATOCRIT 39.7 % (37.0-47.0); HGB - HEMOGLOBIN 13.4 g/dL (12.0-16.0); LYMPHOCYTES # (AUTO) 1.7 10^3/uL (1.5-3.5); LYMPHOCYTES % (AUTO) 28.8 %; MEAN CORPUSCULAR HGB CONC 33.8 g/dL (32.0-36.0); MEAN CORPUSCULAR VOLUME 88.8 fL (81.0-99.0); MEAN PLATELET VOLUME 10.9 fL (7.9-10.8); MONOCYTES # (AUTO) 0.6 10^3/uL (0.0-1.0); MONOCYTES % (AUTO) 10.8 %; NEUTROPHILS # (AUTO) 3.2 10^3/uL (1.5-6.6); NEUTROPHILS % (AUTO) 55.8 %; PLT - PLATELET COUNT 287 10^3/uL (130-450); RED BLOOD COUNT 4.47 10^6/uL (4.20-5.40); RED CELL DISTRIBUTION WIDTH 13.2 % (12.0-15.0); WHITE BLOOD COUNT 5.7 x10^3/uL (4.8-10.8)
[2021-07-13 12:34] LABS: THYROID STIMULATING HORMONE 5.41 uIU/mL (0.34-5.60)
[2021-07-13 12:41] LABS: ALBUMIN 3.8 g/dL (3.2-5.5); ALBUMIN/GLOBULIN RATIO 1.3 (1.0-2.2); ALKALINE PHOSPHATASE 55 IU/L (42-121); ALT ALANINE AMINOTRANSFERASE 21 IU/L (10-60); AST ASPARTATE AMINOTRANSFERASE 19 IU/L (10-42); BILIRUBIN,TOTAL 1.4 mg/dL (0.2-1.0); BUN - BLOOD UREA NITROGEN 21 mg/dL (6-20); CALCIUM 9.6 mg/dL (8.5-10.3); CARBON DIOXIDE - CO2 25 mmol/L (21-32); CHLORIDE 104 mmol/L (101-111); CHOL/HDL RATIO 4.5 (<4.4); CHOLESTEROL 236 mg/dL; CREATININE 1.1 mg/dL (0.4-1.0); GFR - MDRD 49 (>89); GLUCOSE 87 mg/dL (70-100); HDL CHOLESTEROL 53 mg/dL; LDL CHOLESTEROL,CALCULATED 166 mg/dL; LDL/HDL RATIO 3.1 (<4.4); POTASSIUM 4.3 mmol/L (3.5-5.0); SODIUM 138 mmol/L (135-145); TOTAL PROTEIN 6.8 g/dL (6.7-8.2); TRIGLYCERIDES 87 mg/dL; VLDL CHOLESTEROL 17 mg/dL
== END 2021-07-13 23:59 | disposition home or self-care (01) ==
LOC: LAB.WCP 08:00
PROVIDERS: ATTEND Family Medicine
DX: I10 Essential (primary) hypertension (principal); E78.5 Hyperlipidemia, unspecified; E04.1 Nontoxic single thyroid nodule
CPT/HCPCS: 36415; 80053; 80061; 83721; 84443; 85025

== ENCOUNTER 2021-07-23 13:52 | Outpatient (CLI) | payer MEDICARE, MEDICAID ==
--- NOTE | 2021-07-23 17:29 | XRAY Report ---
PROCEDURE: Knee 4 View LT INDICATIONS: LEFT KNEE PAIN TECHNIQUE: 4 views of the left knee(s) were acquired. COMPARISON: None. FINDINGS: Bones: No fractures or dislocations. No suspicious bony lesions. Mild tricompartmental osteoarthri tic degenerative changes. Soft tissues: No joint effusion. No suspicious soft tissue calcifications. IMPRESSION: Mild left knee tricompartmental osteoarthritis. Reviewed by: Janie Helms MD, PhD on 07/23/2021 5:27 PM PST Approved by: Janie Helms MD, PhD on 07/23/2021 5:27 PM PST Station ID: [id number]
== END 2021-07-23 13:53 | disposition home or self-care (01) ==
LOC: DI.N 13:52
PROVIDERS: ATTEND Family Medicine
DX: M17.12 Unilateral primary osteoarthritis, left knee (principal)

== ENCOUNTER 2021-09-16 11:20 | Outpatient (CLI) | payer MEDICARE, MEDICAID ==
[2021-09-16 17:55] LABS: BILIRUBIN,URINE NEGATIVE (NEGATIVE); GLUCOSE, URINE (UA) NEGATIVE (NEGATIVE); KETONES,URINE (UA) NEGATIVE (NEGATIVE); LEUKOCYTE ESTERASE, URINE NEGATIVE (NEGATIVE); NITRITE,URINE NEGATIVE (NEGATIVE); OCCULT BLOOD,URINE SMALL (NEGATIVE); PROTEIN,URINE NEGATIVE (NEGATIVE); UROBILINOGEN,URINE 0.2 (NORMAL) E.U./dL (NORMAL)
[2021-09-16 17:56] LABS: CLARITY,URINE CLEAR (CLEAR)
[2021-09-16 18:21] LABS: RBC,URINE 0-5 /HPF (0-5); SQUAMOUS EPITHELIAL CELL,UR FEW Squamous (<= Few); WBC,URINE 0-3 /HPF (0-5)
[2021-09-16 18:22] LABS: BACTERIA,URINE None Seen /HPF (None Seen); EPITHELIAL CELLS,UR FEW Transitional /HPF (<= Few)
== END 2021-09-16 23:59 | disposition home or self-care (01) ==
LOC: LAB.WCP 11:20
PROVIDERS: ATTEND Physician Assistant
DX: R32 Unspecified urinary incontinence (principal)
CPT/HCPCS: 81001; 87086

== ENCOUNTER 2022-01-06 08:00 | Outpatient (CLI) | payer MEDICARE, MEDICAID ==
--- NOTE | 2022-01-06 11:01 | XRAY Report ---
PROCEDURE: Shoulder 3 View RT INDICATIONS: RIGHT SHOULDER PAIN TECHNIQUE: Views of the location were acquired. COMPARISON: None. FINDINGS: Bones: No fractures or dislocations. No suspicious bony lesions. Mild degenerative changes of the right glenohumeral joint and acromioclavicular joint. No focal osseous lesions. Soft tissues: No suspicious soft tissue calcifications. IMPRESSION: Mild degenerative changes of the right shoulder. No acute abnormality. Reviewed by: Osbaldo Richard on 01/06/2022 11:00 AM PDT Approved by: Osbaldo Richard on 01/06/2022 11:00 AM PDT Station ID: [id number]
== END 2022-01-06 23:59 | disposition home or self-care (01) ==
LOC: DI.S 08:00
PROVIDERS: ATTEND Registered Nurse
DX: M19.011 Primary osteoarthritis, right shoulder (principal)

== ENCOUNTER 2022-01-20 13:03 | Outpatient (CLI) | payer MEDICARE, MEDICAID ==
--- NOTE | 2022-01-28 09:46 | Mammography Report ---
BILATERAL DIGITAL SCREENING MAMMOGRAM 3D/2D: 01/20/2022 CLINICAL: Routine screening. Comparison is made to exams dated: 11/23/2018 mammogram, 05/21/2015 mammogram, 04/29/2014 mammogram, and 11/11/2011 mammogram - [facility]. The tissue of both breasts is heterogeneously dense. This may lower the sensitivity of mammography. There are benign calcifications in the left breast. No significant masses, calcifications, or other findings are seen in either breast. There has been no significant interval change. IMPRESSION: BENIGN There is no mammographic evidence of malignancy. A 1 year screening mammogram is recommended. Based on the Tyrer Cuzick model (a risk assessment model) the patients lifetime risk is 9.6% and her 10 year risk is 6.1%. According to the ACR, ACS, and NCCN guidelines, an annual breast MRI exam jeanie g with mammogram is recommended if the patients lifetime risk is 20% or greater. This exam was interpreted at Station ID: [id number]. NOTE: For mammograms, a report in lay terms will be sent to the patient. Approximately 15% of breast malignancies will not be visualized mammographically. In the management of a palpable breast mass, a negative mammogram must not discourage biopsy of a clinically suspicious lesion. Electronically Signed By: Susan hsu/iain:01/27/2022 16:54:59 ACR BI-RADS Category 2: Benign Finding(s) 3342F PARENCHYMAL PATTERN: (D) - The breast(s) demonstrate(s) heterogeneously dense fibroglandular brian crane. BI-RADS CATEGORY: (2) - 2 RECOMMENDATION: (ANNUAL) - Recommend routine annual screening mammography. [id number] 1 year screening LATERALITY: (B)
== END 2022-01-20 13:04 | disposition home or self-care (01) ==
LOC: DI 13:03
PROVIDERS: ATTEND Physician Assistant
DX: Z12.31 Encounter for screening mammogram for malignant neoplasm of breast (principal)

== ENCOUNTER 2022-01-29 13:07 | Outpatient (CLI) | payer MEDICARE, MEDICAID ==
--- NOTE | 2022-01-29 18:32 | XRAY Report ---
PROCEDURE: Ribs w/PA Chest RT INDICATIONS: RIB PAIN,RIGHT SIDED TECHNIQUE: 2 views of the right ribs were acquired, along with a single view chest. COMPARISON: Correlation is made with the prior shoulder plain film series, 01/06/2022 FINDINGS: Surgical changes and devices: None. Bones and chest wall: No fractures or dislocations. No suspicious bony lesions. Overlying soft tis sues appear unremarkable. Age-appropriate degenerative changes are seen. There is S-shaped scoliosis. Numerous soft tissue nodules can be seen, particularly involving the abdominal skin anteriorly. Lungs and pleura: No pleural effusions or pneumothorax. Lungs appear clear. Mediastinum: Mediastinal contours appear normal. Heart size is normal. IMPRESSION: No displaced fracture can be seen. No pneumothorax is seen. There is S-shaped scoliosis. Numerous soft tissue nodules are seen. Please relate with known patient history and physical examinat ion findings. Reviewed by: Sorin Clark MD on 01/29/2022 5:31 PM YANI Approved by: Sorin Clark MD on 01/29/2022 5:31 PM YANI Station ID: [id number]
== END 2022-01-29 13:08 | disposition home or self-care (01) ==
LOC: DI 13:07
PROVIDERS: ATTEND Physician Assistant Medical
DX: R07.81 Pleurodynia (principal); R91.8 Other nonspecific abnormal finding of lung field; M41.9 Scoliosis, unspecified

== ENCOUNTER 2022-04-10 13:58 | Outpatient (CLI) | payer MEDICARE, MEDICAID | END 2022-04-10 13:59 | disposition EMS.NT | LOC: EMS 13:58 | DX: H93.13 Tinnitus, bilateral (principal) ==

== ENCOUNTER 2022-04-15 17:22 | Outpatient (CLI) | payer MEDICARE, MEDICAID | END 2022-04-15 17:23 | disposition EMS.NT | LOC: EMS 17:22 | DX: H93.19 Tinnitus, unspecified ear (principal) ==

== ENCOUNTER 2022-05-18 09:24 | Outpatient (CLI) | payer MEDICARE ==
[2022-05-18 13:20] LABS: CHOL/HDL RATIO 4.5 (<4.4); CHOLESTEROL 263 mg/dL; HDL CHOLESTEROL 59 mg/dL; LDL CHOLESTEROL,CALCULATED 185 mg/dL; LDL/HDL RATIO 3.1 (<4.4); TRIGLYCERIDES 94 mg/dL; VLDL CHOLESTEROL 19 mg/dL
== END 2022-05-18 09:25 | disposition home or self-care (01) ==
LOC: LAB.N 09:24
PROVIDERS: ATTEND Physician Assistant
DX: E78.5 Hyperlipidemia, unspecified (principal)
CPT/HCPCS: 36415; 80061; 83721

== ENCOUNTER 2022-06-01 09:20 | Outpatient (CLI) | payer MEDICARE, MEDICAID ==
--- NOTE | 2022-06-01 14:31 | Ultrasound Report ---
PROCEDURE: Head or Neck Soft Tissue INDICATIONS: THYROID NODULE TECHNIQUE: Real-time scanning was performed of the thyroid gland, with image documentation. COMPARISON: None FINDINGS: Right: Thyroid lobe measures 4.8 x 1.5 x 1.9 cm, and is homogeneous in echotexture. Left: Not visualized Isthmus: Not well seen Nodule number: One Location: Right superior Size: 1.0 x 1.0 x 0.6 cm compared to 0.7 x 0.7 x 0.5 cm. Composition: Mixed Echogenicity: Hypoechoic Shape: wider than tall. Margins: Smooth Echogenic foci: None Total points: 4 ACR TI-RADS category: 4 Nodule number: Two Location: Right mid Size: 1.4 x 1.2 x 1.0 cm. Composition: Mixed Echogenicity: Hypoechoic Shape: wider than tall. Margins: Smooth Echogenic foci: None Total points: 4 ACR TI-RADS category: 4 Nodule number: Three Location: Right inferior Size: 1.3 x 1.1 x 0.9 cm compared to 0.5 x 0.5 x 0.4 cm. Composition: Mixed Echogenicity: Hypoechoic Shape: wider than tall. Margins: Smooth Echogenic foci: None Total points: 4 ACR TI-RADS category: 4 IMPRESSION: Lesion 1 is considered category 4 and has demonstrated interval increase in size. Consider fine-needl e aspiration or short interval imaging follow-up. Lesion 2 is category 4. Secondary to size, imaging follow-up at 1, 2, 3 and 5 years is recommended. Lesion 3 is considered category 4. Secondary to increase in size, fine-needle aspiration is recommend ed. ACR TI-RADS definitions and recommendations: TI-RADS 1 (benign): 0 points. FNA not needed. TI-RADS 2 (not suspicious): 2 points. FNA not needed. TI-RADS 3 (mildly suspicious): 3 points. "FNA if 2.5 cm or larger, follow up if 1.5 cm or larger (at 1, 3, and 5 years). TI-RADS 4 (moderately suspicious): 4-6 points. "FNA if 1.5 cm or larger, follow up if 1 cm or larger (at 1, 2, 3, and 5 years). TI-RADS 5 (highly suspicious): 7 points or more. "FNA if 1 cm or larger, follow up if 0.5 cm or larger (every year for 5 years). Reviewed by: Deepthi Mccollum MD on 06/01/2022 2:30 PM PST Approved by: Deepthi Mccollum MD on 06/01/2022 2:30 PM PST Station ID: [id number]
== END 2022-06-01 09:21 | disposition home or self-care (01) ==
LOC: DI 09:20
PROVIDERS: ATTEND Physician Assistant
DX: E04.2 Nontoxic multinodular goiter (principal)

== ENCOUNTER 2022-06-15 09:12 | Outpatient (CLI) | payer MEDICARE, MEDICAID ==
[~2022-06-15 09:12] MED LIST: LIDOCAINE-MPF 1% 5 ML VIAL ONE
[2022-06-15] MEDS ORDERED: LIDOCAINE-MPF 1% 5 ML VIAL ONE (10:07)
[2022-06-15] MEDS ORDERED: LIDOCAINE-MPF 1% 5 ML VIAL SUBQ STA (15:42)
--- NOTE | 2022-06-15 16:44 | Ultrasound Report ---
PROCEDURE: FNA Bx w/US Gdn 1st Les INDICATIONS: THYROID NODULE TECHNIQUE: The indications, alternatives, benefits, risks, and complications of the procedure were explained to the patient. Written informed consent was obtained and placed in the chart. The area of interest wa s examined sonographically and a site was chosen for ultrasound guided percutaneous sampling. The sk in was prepared and draped in the usual fashion, and anesthetized with 1% lidocaine infiltrated from the skin down to the lesion. Multiple passes were then performed, with contents emptied into an appr [facility] pathology specimen container. A bandage was applied to the area of access at completion of t he study. COMPARISON: None. FINDINGS: Location(s) of lesion(s) sampled: Right superior lobe [place]: 25 gauge hypodermic needles. Number of passes: 6 Medications: 1% lidocaine for local anaesthesia. Complications: None. IMPRESSION: Successful ultrasound-guided right superior lobe fine needle aspiration, with cytology results tacos early Reviewed by: Deepthi Mccollum MD on 06/15/2022 4:43 PM PST Approved by: Deepthi Mccollum MD on 06/15/2022 4:43 PM PST Station ID: [id number]
--- NOTE | 2022-06-15 16:45 | Ultrasound Report ---
PROCEDURE: FNA Bx w/US Gnd Ea Addl INDICATIONS: THYROID NODULES FOR FNA X 2 TECHNIQUE: The indications, alternatives, benefits, risks, and complications of the procedure were explained to the patient. Written informed consent was obtained and placed in the chart. The area of interest wa s examined sonographically and a site was chosen for ultrasound guided percutaneous sampling. The sk in was prepared and draped in the usual fashion, and anesthetized with 1% lidocaine infiltrated from the skin down to the lesion. Multiple passes were then performed, with [facility]. A bandage was applied to the area of access at completion of t he study. COMPARISON: None. FINDINGS: Location(s) of lesion(s) sampled: Right inferior lobe [place]: 25 gauge hypodermic needles. Number of passes: 6 Medications: 1% lidocaine for local anaesthesia. Complications: None. IMPRESSION: Successful ultrasound-guided right inferior lobe fine needle aspiration, with cytology results tacos early Reviewed by: Deepthi Mccollum MD on 06/15/2022 4:44 PM PST Approved by: Deepthi Mccollum MD on 06/15/2022 4:44 PM PST Station ID: [id number]
== END 2022-06-15 09:13 | disposition home or self-care (01) ==
LOC: DI 09:12
PROVIDERS: ATTEND Physician Assistant
DX: E04.2 Nontoxic multinodular goiter (principal)
CPT/HCPCS: 10005; 10006

== ENCOUNTER 2022-07-22 11:31 | Outpatient (CLI) | payer MEDICARE, MEDICAID | END 2022-07-22 23:59 | disposition EMS.NT | LOC: EMS 11:31 | DX: H93.19 Tinnitus, unspecified ear (principal) ==

== ENCOUNTER 2022-07-29 08:30 | Outpatient (CLI) | payer MEDICARE, MEDICAID | END 2022-07-29 08:31 | disposition EMS.NT | LOC: EMS 08:30 | DX: I10 Essential (primary) hypertension (principal) ==

== ENCOUNTER 2022-10-11 13:59 | Outpatient (CLI) | payer MEDICARE, MEDICAID ==
[2022-10-11] MEDS ORDERED: LIDOCAINE-MPF 1% 5 ML VIAL TD ONE (15:20)
--- NOTE | 2022-10-11 16:30 | Ultrasound Report ---
PROCEDURE: FNA Bx w/US Gdn 1st Les INDICATIONS: THYROID NODULE TECHNIQUE: The indications, alternatives, benefits, risks, and complications of the procedure were explained to the patient. Written informed consent was obtained and placed in the chart. The area of interest wa s examined sonographically and a site was chosen for ultrasound guided percutaneous sampling. The sk in was prepared and draped in the usual fashion, and anesthetized with 1% lidocaine infiltrated from the skin down to the lesion. Multiple passes were then performed, with contents emptied into an appr [facility] pathology specimen container. A bandage was applied to the area of access at completion of t he study. COMPARISON: 06/01/2022 FINDINGS: Location(s) of lesion(s) sampled: Right superior nodule [place]: 25 gauge hypodermic needles. Number of passes: 4 Medications: 1% lidocaine for local anaesthesia. Complications: None. IMPRESSION: Successful ultrasound-guided right superior fine needle aspiration, with cytology results pending. Reviewed by: Josiah Chávez MD on 10/11/2022 4:29 PM PDT Approved by: Josiah Chávez MD on 10/11/2022 4:29 PM PDT Station ID: [id number]
== END 2022-10-11 14:00 | disposition home or self-care (01) ==
LOC: DI 13:59
PROVIDERS: ATTEND Physician Assistant
DX: E04.1 Nontoxic single thyroid nodule (principal)
CPT/HCPCS: 10005

== ENCOUNTER 2023-03-02 11:31 | Outpatient (CLI) | payer MEDICARE, MEDICAID | END 2023-03-02 11:32 | disposition home or self-care (01) | LOC: LAB 11:31 | PROVIDERS: ATTEND Psychiatry & Neurology Neurology | DX: R26.81 Unsteadiness on feet (principal) | CPT/HCPCS: 36415; 82565 ==

== ENCOUNTER 2023-03-02 11:31 | Outpatient (CLI) | payer MEDICARE, MEDICAID ==
--- NOTE | 2023-03-02 13:47 | MRI Report ---
PROCEDURE: BRAIN WO INDICATIONS: MENIERE'S DISEASE, BILATERAL TECHNIQUE: Noncontrast axial T1 spin echo, axial T2 fast spin echo, sagittal and axial FLAIR, coronal T2 fast sp in echo, axial gradient echo, axial diffusion and ADC through the brain. COMPARISON: None. FINDINGS: Image quality: Excellent. CSF Spaces: Basal cisterns are patent. No extra-axial fluid collections. Ventricles are normal in size and shape. Brain: No intracranial masses or hemorrhage. Matthew/white matter interface is normal. Brainstem appe ars normal. Age-related global volume loss. Mild chronic microvascular ischemic changes. Diffusion-we ighted images demonstrate no acute ischemic insult. No chronic ischemic insults. Normal intravascul ar flow voids are present. Skull and face: Calvarium has normal marrow signal. Orbits appear normal. Sinuses: Sinuses and mastoids are clear. IMPRESSION: 1.No acute intracranial abnormalities. 2.Age-related global volume loss and mild chronic microvascular ischemic changes. 3.Exam was initially scheduled as a brain MRI with and without contrast, however patient refused cont rast. Reviewed by: Sharif Combs MD on 03/02/2023 1:45 PM PDT Approved by: Sharif Combs MD on 03/02/2023 1:45 PM PDT Station ID: [id number]
== END 2023-03-02 11:32 | disposition home or self-care (01) ==
LOC: DI 11:31
PROVIDERS: ATTEND Psychiatry & Neurology Neurology
DX: Q85.00 Neurofibromatosis, unspecified (principal); H81.03 Meniere's disease, bilateral; R26.81 Unsteadiness on feet; G31.89 Other specified degenerative diseases of nervous system; I67.82 Cerebral ischemia
CPT/HCPCS: 36415; 82565

== ENCOUNTER 2023-09-06 10:02 | Outpatient (CLI) | payer MEDICARE, MEDICAID ==
[2023-09-06 11:47] LABS: BASOPHILS # (AUTO) 0.1 10^3/uL (0.0-0.1); BASOPHILS % (AUTO) 1.3 %; EOSINOPHILS # (AUTO) 0.1 10^3/uL (0.0-0.7); EOSINOPHILS % (AUTO) 1.3 %; HCT - HEMATOCRIT 45.5 % (37.0-47.0); LYMPHOCYTES % (AUTO) 28.3 %; MEAN CORPUSCULAR HEMOGLOBIN 28.9 pg (27.0-31.0); MEAN CORPUSCULAR VOLUME 87.7 fL (81.0-99.0); MEAN PLATELET VOLUME 11.1 fL (7.9-10.8); MONOCYTES # (AUTO) 0.7 10^3/uL (0.0-1.0); MONOCYTES % (AUTO) 10.1 %; NEUTROPHILS # (AUTO) 4.1 10^3/uL (1.5-6.6); NEUTROPHILS % (AUTO) 58.6 %; PLT - PLATELET COUNT 316 10^3/uL (130-450); RED BLOOD COUNT 5.19 10^6/uL (4.20-5.40); RED CELL DISTRIBUTION WIDTH 13.5 % (12.0-15.0)
[2023-09-06 12:45] LABS: THYROID STIMULATING HORMONE 2.23 uIU/mL (0.34-5.60)
[2023-09-06 16:44] LABS: ALBUMIN 4.2 g/dL (3.2-5.5); ALBUMIN/GLOBULIN RATIO 1.4 (1.0-2.2); ALKALINE PHOSPHATASE 59 IU/L (42-121); ALT ALANINE AMINOTRANSFERASE 18 IU/L (10-60); AST ASPARTATE AMINOTRANSFERASE 17 IU/L (10-42); BILIRUBIN,TOTAL 1.8 mg/dL (0.2-1.0); BUN - BLOOD UREA NITROGEN 21 mg/dL (6-20); CALCIUM 10.4 mg/dL (8.5-10.3); CARBON DIOXIDE - CO2 27 mmol/L (21-32); CHLORIDE 101 mmol/L (101-111); CHOL/HDL RATIO 3.9 (<4.4); CHOLESTEROL 247 mg/dL; CREATININE 1.2 mg/dL (0.6-1.3); GFR - MDRD 44 (>89); GLUCOSE 88 mg/dL (74-104); HDL CHOLESTEROL 63 mg/dL; LDL CHOLESTEROL,CALCULATED 155 mg/dL; LDL/HDL RATIO 2.5 (<4.4); POTASSIUM 4.5 mmol/L (3.5-4.5); SODIUM 133 mmol/L (135-145); TOTAL PROTEIN 7.3 g/dL (6.4-8.9); TRIGLYCERIDES 146 mg/dL (48-352); VLDL CHOLESTEROL 29 mg/dL
== END 2023-09-06 10:03 | disposition home or self-care (01) ==
LOC: LAB.N 10:02
PROVIDERS: ATTEND Physician Assistant
DX: I10 Essential (primary) hypertension (principal); E03.9 Hypothyroidism, unspecified; E80.6 Other disorders of bilirubin metabolism
CPT/HCPCS: 36415; 80053; 80061; 83721; 84439; 84443; 85025

== ENCOUNTER 2024-01-16 08:00 | Outpatient (CLI) | payer MEDICARE, MEDICAID ==
[2024-01-16 13:10] LABS: FECAL OCCULT BLOOD (FIT) POSITIVE (NEGATIVE)
== END 2024-01-16 23:59 | disposition home or self-care (01) ==
LOC: LAB.R 08:00
PROVIDERS: ATTEND Physician Assistant
DX: Z12.11 Encounter for screening for malignant neoplasm of colon (principal)
CPT/HCPCS: 82274

== ENCOUNTER 2024-02-02 14:11 | Outpatient (CLI) | payer MEDICARE, MEDICAID ==
[2024-02-02 18:26] LABS: ALBUMIN/GLOBULIN RATIO 1.5 (1.0-2.2); BILIRUBIN,TOTAL 0.8 mg/dL (0.2-1.0); CALCIUM 10.3 mg/dL (8.5-10.3); POTASSIUM 4.7 mmol/L (3.5-4.5); TOTAL PROTEIN 6.7 g/dL (6.4-8.9)
== END 2024-02-02 14:12 | disposition home or self-care (01) ==
LOC: LAB.N 14:11
PROVIDERS: ATTEND Physician Assistant
DX: M81.0 Age-related osteoporosis without current pathological fracture (principal)
CPT/HCPCS: 36415; 80053; 82306; 83970

== ENCOUNTER 2024-02-06 11:30 | Outpatient (CLI) | payer MEDICARE, MEDICAID ==
--- NOTE | 2024-02-07 10:48 | Mammography Report ---
BILATERAL DIGITAL SCREENING MAMMOGRAM 3D/2D: 02/06/2024 CLINICAL: Routine screening. Comparison is made to exams dated: 01/20/2022 mammogram, 11/23/2018 mammogram, 05/21/2015 mammogram, 1 mammogram, and 11/11/2011 mammogram - [facility]. Both breasts are heterogeneously dense, which may obscure small masses (category c / 51-75% glandular tissue). There are benign calcifications in the left breast. No significant masses, calcifications, or other findings are seen in either breast. There has been no significant interval change. IMPRESSION: BENIGN There is no mammographic evidence of malignancy. A 1 year screening mammogram is recommended. Based on the Tyrer Cuzick model (a risk assessment model) the patient's lifetime risk is 8.6% and her 10 year risk is 6.4%. According to the ACR, ACS, and NCCN guidelines, an annual breast MRI exam jeanie g with mammogram is recommended if the patient's lifetime risk is 20% or greater. This exam was interpreted at Station ID: [id number]. NOTE: For mammograms, a report in lay terms will be sent to the patient. Approximately 15% of breast malignancies will not be visualized mammographically. In the management of a palpable breast mass, a negative mammogram must not discourage biopsy of a clinically suspicious lesion. Electronically Signed By: Lauren bernard/iain:02/06/2024 12:40:32 letter sent: No_Letter ACR BI-RADS Category 2: Benign Finding(s) 3342F PARENCHYMAL PATTERN: (D) - The breast(s) demonstrate(s) heterogeneously dense fibroglandular brian crane. BI-RADS CATEGORY: (2) - 2 RECOMMENDATION: (ANNUAL) - Recommend routine annual screening mammography. [id number] 1 year screening LATERALITY: (B)
== END 2024-02-06 11:31 | disposition home or self-care (01) ==
LOC: DI.N 11:30
PROVIDERS: ATTEND Physician Assistant
DX: Z12.31 Encounter for screening mammogram for malignant neoplasm of breast (principal); R92.333 Mammographic heterogeneous density, bilateral breasts